=== PATIENT | male | born 1955 | race Caucasian/White ===

== ENCOUNTER 2023-09-22 10:23 | Outpatient (OUT) | payer MEDICARE, BC, SELFPAY ==
--- NOTE | 2023-09-22 10:32 | CT_ITS ---
[address] [address] Patient Name: KILEY FIGUEREDO MRN: [id number] date: 1955 Sex: M Assigned Patient Location: CT Current Patient Location: CT Accession/Order Number: [id number] Exam Date: 09/22/2023 10:45 Report Date: 09/22/2023 11:41 At the request of: FRIEDA WORKMAN Procedure: CT abdomen pelvis wo con EXAMINATION: CT abdomen pelvis wo con HISTORY: Ureteral Stone COMPARISON: No relevant comparison available. TECHNIQUE: Axial, Coronal, and Sagittal images were created without IV contrast. Dose reduction techniques were achieved by using automated exposure control and/or adjustment of mA and/or kV according to patient size and/or use of iterative reconstruction technique. FINDINGS: LUNG BASES: No visible pulmonary or pleural disease. LIVER: Diffuse hypoattenuation suggesting hepatic steatosis. Focal fatty sparing at the gallbladder fossa BILIARY: Layering cholelithiasis without CT evidence of acute cholecystitis PANCREAS: No lesion, fluid collection, ductal dilatation, or atrophy. SPLEEN: No enlargement or focal lesion. ADRENALS: No mass or enlargement. KIDNEYS: Nonobstructing 6 mm right nephrolith. Mild left perinephric and peripelvic stranding with no significant hydronephrosis. Mild periureteral stranding extending down to the urinary bladder with no focal obstruction BOWEL/MESENTERY: Mild colonic diverticulosis without evidence of acute diverticulitis. Normal appendix. Nonobstructive bowel gas pattern AORTA/VASCULAR: No aortic aneurysm. Mild atherosclerosis RETROPERITONEUM: No mass or adenopathy. LYMPH NODES: No adenopathy. URINARY BLADDER: No visible focal wall thickening, lesion, or calculus. PELVIC ORGANS: Enlarged prostate gland measuring 6.1 cm. Prostate calcifications. Punctate calcification in the prostate gland axial image 144 measuring 4 mm ABDOMINAL WALL: No mass or hernia. BONES: Moderate to severe diffuse degenerative changes OTHER: Negative. CT/CT abdomen pelvis wo con IMPRESSION: Inflammatory changes of the left kidney and ureter with no focal obstruction. The differential diagnosis would include sequela of a passed stone versus pyelonephritis/ureteritis 4 mm calcification in the prostate gland. This likely is incidental. This is posterior in location to the expected course of the prostatic urethra Electronically authenticated by: VELVET NORWOOD Date: 09/22/2023 11:41
== END 2023-09-22 10:24 | disposition home or self-care (01) ==
LOC: CT 10:27
PROVIDERS: PCP Nurse Practitioner Family; Visit Provider Urology
DX: N20.1 Calculus of ureter (principal)
CPT/HCPCS: 74176

== ENCOUNTER 2023-09-26 12:52 | Outpatient (OUT) | payer MEDICARE, SELFPAY ==
[2023-09-26 14:01] LABS: Basophils Percent Auto 0.4 % (0.2-2.0); Eosinophils Absolute Auto 0.2 10^3/uL (0.0-0.7); Hematocrit 33.8 % (42.0-54.0); Hemoglobin 11.1 g/dL (14.0-18.0); Immature Granulocytes Abs Auto 0.03 10^3/uL (0.00-0.03); Immature Granulocytes Pct Auto 0.4 % (0.0-0.5); Lymphocytes Absolute Auto 2.5 10^3/uL (1.2-3.8); Lymphocytes Percent Auto 31.3 % (20.5-60.0); Mean Corpuscular HGB Conc 32.8 g/dL (29.9-35.2); Mean Corpuscular Hemoglobin 28.7 pg (25.9-34.0); Mean Corpuscular Volume 87.3 fL (80.0-94.0); Mean Platelet Volume 9.5 fL (9.5-13.5); Monocytes Absolute Auto 0.6 10^3/uL (0.3-0.8); Monocytes Percent Auto 7.9 % (1.7-12.0); Neutrophils Absolute Auto 4.5 10^3/uL (1.4-6.5); Platelet Count 273 10^3/uL (150-450); Red Blood Count 3.87 10^6/uL (4.70-6.10); Red Cell Distribution Width 13.4 % (11.0-15.0)
[2023-09-26 14:14] LABS: Anion Gap 11.6; BUN Creatinine Ratio 18.8; Calcium 9.5 mg/dL (8.5-10.1); Carbon Dioxide 28.6 mmol/L (21.0-32.0); Chloride 103 mmol/L (98-107); Estimated GFR (African America >60 (>=60); Estimated GFR (Non-African Ame >60 (>=60); Glucose 167 mg/dL (74-106); INR 1.08; Partial Thromboplastin Time 31.3 sec (22.3-36.2); Potassium 4.2 mmol/L (3.5-5.1); Prothrombin Time 11.4 sec (9.0-11.6); Sodium 139 mmol/L (136-145)
== END 2023-09-26 12:53 | disposition home or self-care (01) ==
PROVIDERS: PCP Nurse Practitioner Family; Visit Provider Urology
DX: Z01.812 Encounter for preprocedural laboratory examination (principal); N13.2 Hydronephrosis with renal and ureteral calculous obstruction
CPT/HCPCS: 80048; 85025; 85610; 85730

== ENCOUNTER 2023-09-28 07:41 | Day surgery (SDC) | payer MEDICARE, BC, SELFPAY ==
[2023-09-26 13:10] VITALS: BP 139/82; PULSE 76; TEMP 36.3; O2SAT 98; BMI 32.4
[2023-09-28] VITALS (12 sets, daily range): BP systolic 99–172; BP diastolic 44–99; PULSE 71–79; TEMP 36.2–36.3; O2SAT 96–99; BMI 32.2
--- NOTE | 2023-09-28 | FL_ITS ---
[address] [address] Patient Name: KILEY FIGUEREDO MRN: [id number] date: 1955 Sex: M Assigned Patient Location: [facility] Current Patient Location: [facility] Accession/Order Number: [id number] Exam Date: 09/28/2023 10:15 Report Date: 10/02/2023 10:05 At the request of: FRIEDA WORKMAN Procedure: FL fluoroscopy <1hr NON-READ EXAM: FL fluoroscopy <1hr NON-READ HISTORY: TECHNIQUE: FINDINGS: Please see Operative Report. Electronically authenticated by: RADIOLOGIST NO Date: 10/02/2023 10:05
[2023-09-28 08:05] LABS: Glucometer 130 mg/dL (74-106)
[2023-09-28] MEDS: LACTATED RINGER'S SOLUTION 1,000 ML 50 ML IV ×2 (08:15→10:13)
[2023-09-28] MEDS: CEFAZOLIN SODIUM/DEXTROSE,ISO 2 GM/50 ML PIGGYBACK IV (09:23)
--- NOTE | 2023-09-28 10:52 | P.URON_ITS ---
Urology Surgery Operative Note Operative Note Procedure Date: 09/28/23 Time Out Performed: yes Pre-op Diagnosis: Low left ureteral calculus and ureteritis; right flank pain Post-op Diagnosis: same as pre-op Procedures performed: 1. Cystoscopy. 2. Left ureterorenoscopy. 3. Laser lithotripsy of left renal calculus. 4. Basket extraction of stone fragment. 5. Placement of 6 Nepalese variable length left ureteral stent. 6. Right ureteral dilation. 7. Right ureteroscopy. Anesthesia: GETA Primary Surgeon: Mathew Yang Complications: None Estimated blood loss (mL): 20 Findings: 1. Left ureteral stenosis and left distal ureteritis. 2. Left renal calculus. 3. Large median lobe of the prostate which bled. 4. No evidence of right ureteral calculus or stenosis Specimens: Left renal calculus fragment Drains: 6 Nepalese variable length left ureteral stent Indications for Procedures: This gentleman has a 4 mm left ureteral calculus that he has been unable to pass. He also has left ureteritis by CT scan. He presented today for left ureteroscopy possible stone manipulation and possible stent placement. In preop, he told me he had rather significant right lower quadrant pain. In light of knowing that he had a right renal calculus we also are going to look into the right urinary tract. He has signed an informed consent for these procedures after risks were explained. Detailed description of Procedure: The patient was brought to the operating room and placed on the operating room table in the supine position. SCDs were placed on the lower extremities and turned on and functioning during the entire case. Timeout was done by all parties in the room. We all agreed upon the patient's identification and the planned procedures for this patient. Genn. anesthesia was then administered. The patient was then repositioned into the modified dorsal lithotomy position. All pressure points were satisfactorily padded. Genitalia were sterilely prepped and draped in usual fashion. I started by passing a 22 Nepalese Olympus cystoscope per urethra and into the bladder. The anterior urethra was normal. The prostatic urethra had obstructing lateral lobes and a significantly capacious median lobe which poached into the bladder a little bit. Panendoscopy in the bladder showed high-grade trabeculation. There were also small stone pieces on the floor of the bladder. I passed a wire through the scope and cannulated the left ureter and passed this up into the kidney. I then passed a 10/12 ureteral access sheath over the wire after removing the scope. The access sheath went up to the L5 position. The wire and stylette were removed. I then passed a flexible ureteroscope through the access sheath and into the ureter. I then ascended up and then into the kidney. The proximal ureter was unremarkable. I scoped within all of the calyces upper mid and lower pole. I found a sizable stone within the lower pole calyces. I then used 200 ? laser fiber and passed it through the scope and made contact with the stone. At 6 W continuously I used the thulium laser and fragmented the stone. A 0 tip nitinol basket was used and pieces were engaged and extracted out and sent for analysis. The scope was then brought out and the access sheath was brought out keeping the scope tip proximal to the access sheath so I could evaluate the rest of the ureter. No evidence of stone was noted but the distal third of the ureter had evidence of ureteritis. It was also bleeding at this time because it was significantly stenosed prior to passing the access sheath. I elected to place a stent on the left. I passed the cystoscope back in the bladder and slid a wire up the left ureter and then passed a 6 Nepalese variable length stent over the wire into the kidney. The wire was removed and there were good curls in the kidney and the bladder. There were some clots in the bladder now from the scope pressing against the median lobe. These were irrigated out with the Ilich evacuator. I then passed a wire up the right ureter. I dilated the right ureter with a 10 Nepalese dilator and then remove the scope. I then passed a flexible ureteroscope over the wire and went up the ureter and there was no evidence of stone or stenosis. The cystoscope wire were then removed. The cystoscope was passed back in the bladder. I irrigated out a few more small clots. The bladder was drained of its contents and the scope was then removed. The anesthetic was then reversed. He was then transferred to a [facility] bed and wheeled to PACU in stable condition.
[2023-09-28] MEDS: SOLIFENACIN SUCCINATE 10 MG TABLET PO (11:21)
[2023-09-28] MEDS: TAMSULOSIN HCL 0.4 MG CAPSULE 0.400000000000000022 MG PO (11:38)
--- NOTE | 2023-09-28 12:06 | PC.NURSE ---
Up to bathroom and voids bloody urine without difficulty.
== END 2023-09-28 12:08 | disposition home or self-care (01) ==
PROVIDERS: PCP Nurse Practitioner Family; Visit Provider Urology
PROC: (CPT 52356; principal; 2023-09-28 09:50)
DX: N13.6 Pyonephrosis (principal); E11.9 Type 2 diabetes mellitus without complications; Z79.01 Long term (current) use of anticoagulants; I48.91 Unspecified atrial fibrillation; Q62.10 Congenital occlusion of ureter, unspecified; N32.89 Other specified disorders of bladder; J45.909 Unspecified asthma, uncomplicated; N40.1 Benign prostatic hyperplasia with lower urinary tract symptoms; I10 Essential (primary) hypertension; Z87.442 Personal history of urinary calculi; E78.00 Pure hypercholesterolemia, unspecified; Z79.84 Long term (current) use of oral hypoglycemic drugs; Z87.891 Personal history of nicotine dependence
CPT/HCPCS: 52356; 36415; 76000; 82365; 82948; 99999; J1094; J2704